=== PATIENT | female | born 1975 | race Two or more races ===

== ENCOUNTER → 2020-07-10 11:16 | Outpatient (CLI) | payer OTHER | END | disposition home or self-care (01) | LOC: PPH VACUNA 11:16 | DX: Z23 Encounter for immunization (principal) ==

== ENCOUNTER 2020-11-17 16:47 | Emergency (ER) | payer OTHER ==
[~2020-11-17] VITALS: Ht 165.1 cm; Wt 72.6 kg
== END 2020-11-17 22:26 | disposition home or self-care (01) ==
LOC: ER 16:47
DX: R51.9 Headache, unspecified (principal); R42 Dizziness and giddiness; Z03.818 Encounter for observation for suspected exposure to other biological agents ruled out